=== PATIENT | female | born 1955 | race Caucasian/White ===

== ENCOUNTER → 2023-10-28 | Day surgery (SDC) | payer MEDICARE ==
[2023-10-27 08:57] VITALS: BMI 25.9
[~2023-10-28] MED LIST: PROPOFOL 10 MG/ML 20 ML VIAL IV ONE
[2023-10-28] MEDS: IV FLUID CONTINUATION 1,000 ML IV ONE (11:39)
[2023-10-28] MEDS: LACTATED RINGERS 1,000 ML IV SCH (11:40)
[2023-10-28 11:46] LABS: Glucose,Whole Blood 101 mg/dL (70-110)
--- NOTE | 2023-10-28 12:12 | P.GSHP ---
History of Present Illness H&P Date: 10/28/23 Chief Complaint: Colon cancer screening 68-year-old female here for colonoscopy. Last colonoscopy 10 to 15 years ago. Patient says she had multiple polyps. No bowel complaints. No family history of colon cancer. Past Medical History Past Medical History: Diabetes Mellitus, Hyperlipidemia, Hypertension Additional Past Medical History / Comment(s): HX 2 BRAIN ANEURYSM'S-1 BURST, WATCHING THE OTHER ONE History of Any Multi-Drug Resistant Organisms: None Reported Past Surgical History: Orthopedic Surgery, Tonsillectomy Additional Past Surgical History / Comment(s): BRAIN ANERYSUM-SX. RT KNEE SX. COLONOSCOPIES WITH POLYP REMOVAL Past Anesthesia/Blood Transfusion Reactions: No Reported Reaction Smoking Status: Never smoker - Past Family History Mother Family Medical History: Cancer Medications and Allergies Home Medications Medication Instructions Recorded Confirmed Type Atorvastatin [Lipitor] 20 mg PO HS 10/27/23 10/27/23 History Empagliflozin [Jardiance] 25 mg PO DAILY 10/27/23 10/27/23 History Valsartan/Hydrochlorothiazide 1 each PO DAILY 10/27/23 10/27/23 History [Valsartan-Hctz 160-12.5 mg Tab] metFORMIN HCL [Glucophage] 500 mg PO BID 10/27/23 10/27/23 History Allergies Allergy/AdvReac Type Severity Reaction Status Date / Time sulfamethoxazole Allergy Rash/Hives Verified 10/27/23 08:40 [From Bactrim] trimethoprim [From Bactrim] Allergy Rash/Hives Verified 10/27/23 08:40 meperidine [From Demerol] AdvReac Nausea & Verified 10/27/23 08:40 Vomiting Surgical - Exam Physical exam: General: Well-developed, well-nourished HEENT: Normocephalic, sclerae nonicteric Abdomen: Nontender, nondistended Extremities: No edema Neuro: Alert and oriented Assessment and Plan (1) Colon cancer screening Narrative/Plan: 6Will proceed with colonoscopy at this time. Current Visit: Yes Status: Acute Code(s): Z12.11 - ENCOUNTER FOR SCREENING FOR MALIGNANT NEOPLASM OF COLON SNOMED Code(s): 031312780
--- NOTE | 2023-10-28 12:25 | P.PCN ---
Date of Procedure: 10/28/23 Procedure(s) Performed: PREOPERATIVE DIAGNOSIS: Colon cancer screening POSTOPERATIVE DIAGNOSIS: Ascending colon polyp PROCEDURE: Colonoscopy with snare polypectomy ANESTHESIA: MAC SURGEON: Jm Callahan M.D. SPECIMENS: Polyp ENDOSCOPIC PROCEDURE: The patient was placed on the endoscopy table in the left decubitus position. The Olympus colonoscope was inserted into the anus and passed under direct visualization to the base of the cecum. The appendiceal orifice was visualized. From that point the scope was slowly withdrawn inspecting all surfaces carefully. There were no neoplastic inflammatory or polypoid lesions throughout the cecum. In the ascending colon a small polyp was seen and removed using the snare with cautery technique. The remainder of the ascending transverse descending sigmoid and rectum appeared normal. There is no visible diverticulosis. Digital rectal examination was normal. The patient was taken to the recovery room in stable condition per anesthesia guidelines. RECOMMENDATIONS: Await biopsy results. Will contact patient with timing of next colonoscopy.
[2023-10-28 12:28] VITALS: RESP 16
[2023-10-28 12:39] VITALS: BP 130/71; PULSE 72
== END ==
LOC: ORWHC2ENDO 10:43
PROVIDERS: ATTEND Surgery
DX: Z12.11 Encounter for screening for malignant neoplasm of colon (principal); D12.2 Benign neoplasm of ascending colon; E11.9 Type 2 diabetes mellitus without complications; E78.5 Hyperlipidemia, unspecified; I10 Essential (primary) hypertension; Z79.84 Long term (current) use of oral hypoglycemic drugs; Z88.1 Allergy status to other antibiotic agents; Z88.2 Allergy status to sulfonamides; Z88.5 Allergy status to narcotic agent; Z86.010 Personal history of colon polyps; Z79.899 Other long term (current) drug therapy; Z98.890 Other specified postprocedural states
CPT/HCPCS: 45385; J2704; 88305